=== PATIENT | female | born 1960 | race African-American/Black ===

== ENCOUNTER 2018-05-31 08:31 | Inpatient (IN) | payer MEDICARE ==
[2018-05-31] MEDS ORDERED: Nitroglycerin 50 MG/250 ML BOT 250 ML ONE (08:36)
[2018-05-31] MEDS ORDERED: Fentanyl 100 MCG/2 ML VIAL ONE ×2 (08:37→09:48)
[2018-05-31 08:50] LABS: Actual Bicarbonate (HCO3a) 13.8 mEq/L (22-28); Analyzer IN Cardio ER; CO2 Tension 53.2 mmHg (35.0-45.0); Calcium, Ionized 1.18 mmol/L (1.12-1.30); Carboxyhemoglobin (COHb) 3.4 gm% (0.0-3.0); Hemoglobin (Hb) 13.8 g/dL (12.0-16.0); O2 Tension (PaO2) 90.7 mmHg (80.0-100.0); Potassium - ABG Lab 4.81 mmol/L (3.70-5.30)
[2018-05-31 08:51] LABS: Puncture Site LBA; pH, Arterial 7.03 (7.35-7.45)
--- NOTE | 2018-05-31 09:20 | RAD ---
SINGLE VIEW OF THE CHEST: Comparison: None. History: Intubation for respiratory failure. FINDINGS: Single view of the chest shows a normal sized cardiomediastinal silhouette. There is a pacemaker with its lead in the right ventricle. An endotracheal tube is seen with its tip in position above the car gail. An NG tube courses off the inferior aspect of the film. There are increased interstitial marking s, more prominent in the lung apices. IMPRESSION: Increased interstitial lung markings may represent interstitial edema or an atypical infection. POS: [facility]
[2018-05-31] MEDS ORDERED: Fentanyl 20 mcg/ml (100 ml CADD) IV PRN (09:26)
[2018-05-31 09:27] LABS: INR-International Normal Ratio 1.2; Prothrombin Time 15.3 SEC (12.0-14.7)
[2018-05-31 09:33] LABS: Hemoglobin 13.4 g/dL (12.0-16.0); Mean Corpuscular HGB CONC 30.8 g/dL (32.0-36.0); Mean Corpuscular Hemoglobin 24.6 pg (27.0-31.0); Mean Corpuscular Volume 79.8 fL (78.0-98.0); Mean Platelet Volume 10.8 fL (7.4-10.4); Platelet Count 183 thou/uL (130-400); Red Blood Cell (RBC) Count 5.45 mill/uL (4.20-5.40); White Blood Cell (WBC) Count 15.6 thou/uL (4.8-10.8)
[2018-05-31 09:39] LABS: ALT (SGPT) 97 U/L (8-55); AST (SGOT) 108 U/L (5-34); Albumin 3.4 g/dL (3.5-5.0); Alkaline Phosphatase 118 U/L (40-150); Anion Gap 23 mmol/L (10-20); BUN (Urea Nitrogen) 16 mg/dL (9.8-20.1); Bilirubin, Total 0.4 mg/dL (0.2-1.2); Calc. Creatinine Clearance 0 mL/min (70-130); Calcium 8.5 mg/dL (7.8-10.44); Carbon Dioxide 13 mmol/L (22-29); Chloride 107 mmol/L (98-107); Estimated GFR-MDRD 45; Globulin 3.2 g/dL (2.4-3.5); Glucose 361 mg/dL (70-105); Potassium 4.7 mmol/L (3.5-5.1); Protein, Total 6.6 g/dL (6.0-8.3); Sodium 138 mmol/L (136-145)
--- NOTE | 2018-05-31 09:39 | CT ---
CTA THORAX UTILIZING IV CONTRAST AND 3D REFORMATTED IMAGING: Date: 05/31/18 INDICATION: History of respiratory and cardiac arrest. COMPARISON: None. FINDINGS: No central or segmental pulmonary embolus is evident. There are perihilar air space opacities with sm all bilateral pleural effusions. No pneumothorax demonstrated. The patient is intubated with gastric catheter placement. Gastric catheter is seen within the fundus. There is some reflux of contrast with in the hepatic veins which can be seen as right heart dysfunction. There are nondisplaced left 1st-4t h rib fractures. There is a nondisplaced anterior right 1st and 2nd rib fracture. There is an AICD ov erlying the left chest wall. IMPRESSION: 1. No central or segmental pulmonary embolus. 2. Bilateral perihilar air space opacities may reflect pulmonary edema, pulmonary hemorrhage, or mul tifocal pneumonia. 3. Reflux of contrast within the hepatic veins which can be seen with right heart dysfunction. There are bilateral pleural effusions. 4. Anterior bilateral rib fractures can be seen with patients following CPR. 5. Intubation with gastric catheter placement. 6. Single lead AICD. POS: [facility]
[2018-05-31 09:58] LABS: Band 10 % (5-11); Eosinophils 6 % (0-10); Hypochromia SLIGHT = 6-15 cells (100X) (0-5/hpf); Lymphocytes 47 % (21-51); MDiff Complete? YES; Microcytosis SLIGHT = 6-15 cells (100X) (0-5/hpf); Monocytes 8 % (0-10); Neutrophil 26 % (42-75); Polychromasia SLIGHT = 2-3 cells (100X) (0-2/hpf); Reactive Lymphocytes 3 % (0-10)
[2018-05-31] MEDS ORDERED: Piperacillin/Tazobactam 4.5 GM VIAL ONE (10:26)
[2018-05-31] MEDS ORDERED: Vancomycin HCl 1.5 GM in Sodium Chloride 0.9% 250 ML 300 ML IVPB SCH (10:45)
[2018-05-31 10:46] LABS: Bilirubin Negative (Negative); Blood, Urine Moderate (Negative); Clarity TURBID (Clear); Glucose, Urine (Dipstick) 250 mg/dL (Negative); Leukocyte Negative (Negative); Nitrite Negative (Negative); Protein, Urine (Dipstick) 300 mg/dL (Neg-Trace); Specific Gravity, Urine 1.037 (1.002-1.036); pH, Urine 5.5 (5.0-9.0)
[2018-05-31 10:49] LABS: Bacteria/HPF 1+ HPF (None Seen)
[2018-05-31 10:52] LABS: Pathc Cast-AUWi Flag 9.98 (0-2.49)
[2018-05-31 10:53] LABS: Hyaline Casts/LPF NONE SEEN LPF (0-3 Hyaline)
[2018-05-31] MEDS ORDERED: Iopamidol 370 76% 50 ML VIAL FS ONE (11:57)
[2018-05-31 12:14] VITALS: BMI 37.2
[2018-05-31 12:23] LABS: CKMB 5.5 ng/mL (0-6.6)
[2018-05-31] MEDS ORDERED: Lorazepam 2 MG/ML VIAL SLOW IVP PRN ×2 (12:26→15:11)
[2018-05-31] MEDS ORDERED: Morphine 2 MG/ML SYRINGE SLOW IVP PRN ×2 (12:26→15:11)
[2018-05-31] MEDS ORDERED: Fentanyl BOLUS 250 ML IVPB PRN ×2 (12:26→15:11)
[2018-05-31] MEDS ORDERED: Propofol BOLUS 1,000 MG/100 ML VIAL IV PRN ×2 (12:26→15:11)
[2018-05-31] MEDS ORDERED: fentaNYL Citrate/PF 2,000 MCG in Sodium Chloride 0.9% 60 ML IV SCH ×2 (12:26→15:11)
[2018-05-31] MEDS ORDERED: Propofol 1,000 MG/100 ML VIAL IV PRN (12:26)
[2018-05-31] MEDS ORDERED: Vecuronium 10 MG VIAL IV PRN (12:30)
[2018-05-31] MEDS ORDERED: Acetaminophen 1,000 MG in Premix Bag 1 BAG IVPB PRN (12:30)
[2018-05-31] MEDS ORDERED: DO NOT USE PRE-EXISTING LYTE PROTOCOL FS SCH (12:30)
[2018-05-31 13:04] LABS: Actual Bicarbonate (HCO3a) 15.7 mEq/L (22-28); Base Excess (BEa) -6.9 mEq/L (-2.0 to +3.0); Calcium, Ionized 1.12 mmol/L (1.12-1.30); Carboxyhemoglobin (COHb) 2.6 gm% (0.0-3.0); Hemoglobin (Hb) 13.1 g/dL (12.0-16.0); O2 Tension (PaO2) 71.5 mmHg (80.0-100.0); Potassium - ABG Lab 4.73 mmol/L (3.70-5.30); pH, Arterial 7.42 (7.35-7.45)
[2018-05-31 13:06] LABS: CO2 Tension 24.7 mmHg (35.0-45.0)
[2018-05-31 13:07] LABS: ALV-art Gradient 289.775 (0-20); Puncture Site RRA
[2018-05-31] MEDS: Cefepime 1 GM in Sodium Chloride 0.9% 100 ML IVPB SCH (13:30)
[2018-05-31] MEDS ORDERED: Ondansetron PF 4 MG/2 ML Vial IVP PRN (13:54)
[2018-05-31] MEDS ORDERED: Ondansetron ODT 4 MG TAB PO PRN (13:54)
[2018-05-31] MEDS ORDERED: Acetaminophen 650 MG Suppository PR PRN (13:54)
[2018-05-31] MEDS ORDERED: Dextrose 50% Abboject 50 ML SYRINGE SLOW IVP PRN (13:54)
[2018-05-31] MEDS ORDERED: Dextrose 5% in Water 1,000 ML IV PRN (13:54)
[2018-05-31] MEDS: HumaLOG 300 UNITS/3 ML VIAL SC PRN ×2 (14:07→15:50)
[2018-05-31] MEDS: Sodium Chloride 0.9% 1,000 ML IV SCH (14:10)
[2018-05-31] MEDS ORDERED: hydrALAZINE 20 MG/ML VIAL ONE (14:12)
[2018-05-31] MEDS ORDERED: Propofol 1,000 MG/100 ML VIAL IV ONE (14:58)
[2018-05-31] MEDS ORDERED: DISCONTINUE PREVIOUS NARCOTIC PAIN MEDICATIONS AND BENZODIAZEPINES FS SCH (15:11)
[2018-05-31] MEDS: levETIRAcetam In NaCl (Iso-Os) 1,000 MG in Premix Bag 1 BAG IVPB SCH (15:16)
--- NOTE | 2018-05-31 17:00 | HP ---
PRIMARY CARE PHYSICIAN: Unknown. The patient is unable to give any information. CHIEF COMPLAINT: [id number] cardiac arrest. HISTORY OF PRESENT ILLNESS: Ms. Obrien is a 57-year-old female, who presented via EMS with respiratory arrest followed by cardiac arrest. She underwent CPR x2 rounds in the prehospital services and with return of spontaneous circulation. Initially, her saturations were 50%, but she was unable to speak and was able to improve with just oxygen. En route to the emergency department, she was intubated with a 7.5 endotracheal tube. Blood pressure today in the 190s and has a pink frothy secretions. She was biting on the tube and was given fentanyl for sedation, but otherwise has been unresponsive. She is unable to give further history. Currently, she had been moved to the ICU. She still intubated on the ventilator. She has been taken off fentanyl just now and is unable to give any further history or follow any commands. PAST MEDICAL HISTORY: 1. Hypertension. 2. Depression. 3. Hyperlipidemia. PAST SURGICAL HISTORY: Unknown. HOME MEDICATIONS: 1. Zocor 40 mg p.o. at bedtime. 2. Clonidine 0.1 mg p.o. daily. 3. Bupropion 300 mg p.o. q.a.m. ALLERGIES: NKDA. FAMILY HISTORY: Unknown. SOCIAL HISTORY: Unknown, but per her family member at the bedside, negative for history of IV drug abuse, tobacco, or significant alcohol uses. REVIEW OF SYSTEMS: Not obtainable due to intubated status. PHYSICAL EXAMINATION: VITAL SIGNS: Temperature on arrival to the unit 97.9, pulse 83, blood pressure 151/91, respiratory rate 18, and saturations 94% on mechanical vent. GENERAL: She is sedated and orally intubated. She is in no distress. HEENT: Normocephalic and atraumatic. Pupils are 2 to 3 mm, minimally reactive. She has Doll eyes. A 7.5 oral endotracheal tube is present . NECK: Supple. There is no lymphadenopathy, JVD, or thyromegaly. Normal carotid upstroke. There are no bruits. LUNGS: Clear. No wheezes, rales, or rhonchi. CARDIOVASCULAR: Normal S1 and S2. No S3 or S4. No audible murmurs. ABDOMEN: Soft, nontender, nondistended. Good bowel sounds in all 4 quadrants. EXTREMITIES: No clubbing with trace pedal edema. SKIN: Warm, moist, and well perfused without rash or lesions. MUSCULOSKELETAL: Normal to inspection without evidence of inflammation or palpable effusions. NEUROLOGIC: Not testable. LABORATORY DATA: White blood cell count 15.6, hemoglobin 13.4, hematocrit of 43.5, and platelet count 183,000. She has normal differential. Coags showed INR 1.2. ABG initially 7.03 with a pCO2 of 53.2, and PO2 of 90.7. Chemistry showed creatinine 1.22. She has an unknown baseline. Glucose of 361. Bicarbonate is low at 13 with a lactic acid of 12.3. AST and ALT were mildly elevated at 108 and 97. Initial troponin was 0.016, repeat is 0.161. BNP of 198.9. Urinalysis shows 11 to 20 squamous epithelial cells specimen. ASSESSMENT AND PLAN: 1. [id number] cardiopulmonary arrest with return of spontaneous circulation. She is intubated in the ICU. Pulmonary Critical Care has been consulted. We will trend other cardiac biomarkers. We will continue to support her respiratorily and allow her to wake up. 2. Diabetes mellitus type 2. Blood sugars of 300. Sliding scale insulin has been ordered. 3. Hypertension. Antihypertensives have been ordered p.r.n. with hydralazine. 4. Hyperlipidemia. 5. Depression. The patient is a full code. Job ID: [id number]
--- NOTE | 2018-05-31 19:36 | CON ---
DATE OF CONSULTATION: HISTORY OF PRESENT ILLNESS: A 57-year-old morbidly obese, female, who was found down at home. She has a granddaughter at the bedside, who states she called the house. She is staying with a friend and a and apparently, they found her down unresponsive. Paramedics were called in. She had cardiopulmonary arrest. Apparently, a PEA, and she has a known ejection fraction of less than 30%. It is unclear whether seen any physician recently. CPR was initiated and apparently, they were able to get a pulse and rhythm. She is intubated in the vent and now in the ICU. The granddaughter is here at the bedside. I will review some of old medical records. She was seeing at one time a doctor, Dr. Iglesias from [place]. It is unclear when the last time, he saw the patient. She was given 2 amps of epinephrine. Cardiac rhythm was initiated. There was a PEA for a period of time. 7.5 endotracheal tube was used to intubate the patient. Frothy secretions were noted. She has a pacemaker in the chest. PAST MEDICAL HISTORY: Reviewing the old medical records shows she has a cardiomyopathy, pacemaker, hypertension, depression. MEDICATIONS: Medicine from home: 1. Simvastatin 40. 2. Catapres 0.1. 3. Bupropion 300. ALLERGIES: AT THIS STAGE, UNKNOWN. PREVIOUS SURGERIES: Otherwise, unknown except for the pacemaker. Previous cardiac catheterization that I was able to see. REVIEW OF SYSTEMS: Otherwise, unobtainable. PHYSICAL EXAMINATION: GENERAL: She is on 100 of fentanyl. VITAL SIGNS: Pulse 83, blood pressure 144/101, saturations 90%, respirations 18. CHEST: Bilateral rhonchi and crackles. CARDIAC: Normal S1 and S2. No gallops. ABDOMEN: Soft. NEUROLOGIC: Unresponsive. Pupils are 2 mm. She has some facial twitches. LABORATORY DATA: PO2 was 90, pCO2 of 56, pH 7.03 on a rate of 14. Glucose is 27. Urine was normal. White count 15,000, H and H of 13 and 43, platelet count is normal. Creatinine 1.2. IMAGING STUDIES: CT chest shows pulmonary edema. No evidence of PE. IMPRESSION: 1. Cardiopulmonary arrest, status post congestive heart failure. 2. Pacemaker. 3. Diabetes. 4. Azotemia. 5. Obesity. 6. Probably anoxic injury. PLAN: 1. Continue supportive care and PT. 2. Reassess neurological status in the next 24 to 48 hours. Await input from Cardiology. Prognosis is grave. This is a 45 minute critical time. Job ID: [id number]
[2018-05-31] MEDS: Famotidine/PF 20 mg/2ml Vial SLOW IVP SCH (20:41)
[2018-05-31] MEDS: Propofol 1,000 MG/100 ML VIAL IV PRN (20:46)
--- NOTE | 2018-05-31 22:39 | CON ---
DATE OF CONSULTATION: 05/31/2018 HISTORY OF PRESENT ILLNESS: Selena Obrien is a 57-year-old black female, who has been evaluated by Dr. Null in the past. She was hospitalized in May 2012 with increased shortness of breath. She underwent cardiac catheterization and had normal coronary arteries, however, ejection fraction was 25% to 30%. She was having episodes of nonsustained ventricular tachycardia. In September 2012, she was again seen in the office and ejection fraction continued to be at 20% to 25%. She was then referred to electrophysiology and in December 2012, she underwent placement of a single-chamber [employer] defibrillator by Dr. Conway (this information was not readily available since the patient has 2 hospital numbers). She has not followed up with Dr. Null since that time. She was last hospitalized in 2014 for chest pain with negative cardiac enzymes. She underwent Cardiolite testing, which was negative for ischemia. Of note, in September 2014, she was on carvedilol 25 mg b.i.d., lisinopril-hydrochlorothiazide 20-12.5 mg b.i.d. However, her current list of medications does not include either of those. Current history is obtained from the hospital chart because the patient is intubated and sedated. She apparently had a respiratory arrest followed by cardiac arrest, underwent CPR x2 prior to arriving in the hospital, was intubated. She has been sedated with fentanyl and is unable to give any history. PAST MEDICAL HISTORY: Hypertension, depression, hyperlipidemia. OPERATIONS: ICD placement. HOME MEDICATIONS: Include: 1. Simvastatin 40 at bedtime. 2. Clonidine 0.1 at bedtime. 3. Wellbutrin 300 mg q.a.m. ALLERGIES: NONE. SOCIAL HISTORY: She does not smoke or drink. REVIEW OF SYSTEMS: Unobtainable. PHYSICAL EXAMINATION: VITAL SIGNS: Blood pressure 160/79, pulse 77. HEENT: PERRL. NECK: Supple. CHEST: Reveals occasional crackles. CARDIOVASCULAR: S1 and S2 normal without any S3, S4, or murmurs. ABDOMEN: Normal bowel sounds. EXTREMITIES: Reveal 1+ pretibial edema. NEUROLOGICAL: The patient is sedated. LABORATORY DATA: Chest x-ray reveals single-chamber ICD and pulmonary edema. EKG, not on the chart. White count 15,600; platelets 183,000; hemoglobin 13.4; hematocrit 43.5. INR 1.2. PH initially was 7.03, pCO2 of 53.2, PO2 of 90.7. Sodium 138, potassium 4.7, chloride 107, carbon dioxide 13, BUN 16, creatinine 1.22, lactic acid 12.3, troponin I 0.161, AST 108, and ALT 97. IMPRESSION: 1. Cardiopulmonary arrest. The exact sequence of events is somewhat unclear, although she did go twice to the emergency room. 2. History of nonischemic cardiomyopathy. 3. Status post single-chamber ICD placement. 4. Noncompliance with followups and with Coreg and VIJAY. 5. Hypertension. 6. Hyperlipidemia. 7. Depression. 8. History of diabetes. PLAN: ICD will be interrogated to see if this episode was initiated by a cardiac arrhythmia. Echocardiogram will be performed to reassess left ventricular function. Her prognosis is guarded at this time. Job ID: [id number] MTDD
[2018-06-01] MEDS: Cefepime 1 GM in Sodium Chloride 0.9% 100 ML IVPB SCH ×2 (01:00→12:29)
[2018-06-01] MEDS: levETIRAcetam In NaCl (Iso-Os) 1,000 MG in Premix Bag 1 BAG IVPB SCH ×2 (02:34→14:14)
[2018-06-01] MEDS: Propofol 1,000 MG/100 ML VIAL IV PRN ×2 (03:18→06:32)
[2018-06-01 04:50] LABS: #Lymphocytes 2.9 thou/uL (1.20-3.40); #Monocytes 1.2 thou/uL (0.11-0.59); #Neutrophils 7.2 thou/uL (1.40-6.50); %Basophils 0.2 % (0.0-1.0); %Eosinophils 0.3 % (0.0-10.0); %Lymphocytes 25.3 % (21.0-51.0); %Monocytes 10.8 % (0.0-10.0); %Neutrophils 63.4 % (42.0-75.0); Hemoglobin 12.3 g/dL (12.0-16.0); Mean Corpuscular HGB CONC 33.2 g/dL (32.0-36.0); Mean Corpuscular Hemoglobin 25.7 pg (27.0-31.0); Mean Corpuscular Volume 77.4 fL (78.0-98.0); Mean Platelet Volume 10.5 fL (7.4-10.4); Platelet Count 139 thou/uL (130-400); RBC Distribution Width 14.2 % (11.5-14.5); White Blood Cell (WBC) Count 11.3 thou/uL (4.8-10.8)
[2018-06-01 05:03] LABS: Anion Gap 14 mmol/L (10-20); BUN (Urea Nitrogen) 18 mg/dL (9.8-20.1); Calc. Creatinine Clearance 92 mL/min (70-130); Calcium 8.1 mg/dL (7.8-10.44); Carbon Dioxide 14 mmol/L (22-29); Chloride 115 mmol/L (98-107); Estimated GFR-MDRD 72; Glucose 97 mg/dL (70-105); Potassium 4.1 mmol/L (3.5-5.1); Sodium 139 mmol/L (136-145)
[2018-06-01 07:27] LABS: Actual Bicarbonate (HCO3a) 18.2 mEq/L (22-28); Base Excess (BEa) -4.7 mEq/L (-2.0 to +3.0); CO2 Tension 26.9 mmHg (35.0-45.0); Calcium, Ionized 1.15 mmol/L (1.12-1.30); Carboxyhemoglobin (COHb) 0.8 gm% (0.0-3.0); Hemoglobin (Hb) 10.5 g/dL (12.0-16.0); O2 Tension (PaO2) 71.2 mmHg (80.0-100.0); Potassium - ABG Lab 3.62 mmol/L (3.70-5.30); pH, Arterial 7.45 (7.35-7.45)
[2018-06-01 07:28] LABS: ALV-art Gradient 251.675 (0-20); Puncture Site RRA
[2018-06-01] MEDS: Furosemide 20 MG/2 ML VIAL SLOW IVP SCH (08:51)
[2018-06-01] MEDS: Carvedilol 6.25 MG TAB PER TUBE SCH ×2 (08:51→16:56)
[2018-06-01] MEDS ORDERED: Lisinopril 2.5 MG TAB PER TUBE SCH (09:00)
[2018-06-01] MEDS: hydrALAZINE 20 MG/ML VIAL SLOW IVP PRN ×2 (09:39→15:23)
--- NOTE | 2018-06-01 09:47 | RAD ---
PORTABLE SEMI UPRIGHT FRONTAL CHEST RADIOGRAPH: Date: 06-01-18 Comparison: 05-31-18 History: Ventilated patient. FINDINGS: Endotracheal tube, nasogastric tube, and left sided AICD present, unchanged when compared to prior im aging. No pneumothorax. There is perihilar interstitial prominence and pulmonary vascular congestion with bibasilar airspace disease, left greater than right, worsened since the prior examination. Blunting of the costophrenic angle suggests small bilateral pleural effusions. IMPRESSION: 1. Worsening aeration in the perihilar regions in both lung bases suggests worsening pulmonary edema. Infectious pneumonitis or aspiration is a possibility. 2. Recommend follow up imaging following treatment to document resolution. POS: [facility]
--- NOTE | 2018-06-01 09:53 | PRG ---
DATE OF SERVICE: SUBJECTIVE: This morning, she is intubated in the vent, sedated on Diprivan and fentanyl. OBJECTIVE: VITAL SIGNS: Blood pressure 160/93, pulse 115, respiratory rate 20, pulse 80. CHEST: Decreased breath sounds. No wheezing. CARDIAC: Normal S1 and S2. No gallops. ABDOMEN: No masses. LABORATORY DATA: White count 11,000 and H and H 12 and 37, platelet count 137. PO2 of 71, pCO2 of 26.44 on a rate of 14, 50%. X-ray shows CHF. Lytes are normal. IMPRESSION: 1. Status post cardiopulmonary arrest. 2. Congestive heart failure. 3. Probably anoxic injury. 4. Obesity. PLAN: We try and hold sedation to assess any neurological status. She is not weanable at this stage. Continue vent support, empiric antibiotics. Seizure medication. One-half hour of critical time. Job ID: [id number]
[2018-06-01] MEDS: HumaLOG 300 UNITS/3 ML VIAL SC PRN ×2 (10:21→16:40)
[2018-06-01] MEDS ORDERED: cloNIDine 0.1mg/24 Hour PATCH TD SCH (12:00)
[2018-06-01] MEDS: Sodium Chloride 0.9% 1,000 ML IV SCH ×4 (12:10→20:59)
--- NOTE | 2018-06-01 12:52 | PDOC.PN ---
- Subjective Encounter Start Date: 06/01/18 Encounter Start Time: 11:45 -: non-verbal follow up for OOH arrest and ROSC. sedation just turned off, not doing anything yet, no family at BS No F/C, no n/V/D/C appreciate pulm assistance. BP still elevated, will add in clonidine TTS-1 - Objective Resuscitation Status - Order Detail: 05/31/18 13:49 Resuscitation Status Routine Resuscitation Status: FULL: Full Resuscitation MAR Reviewed: Yes Vital Signs & Weight: Vital Signs (12 hours) Temp Pulse Resp BP Pulse Ox 06/01/18 12:00 99.3 F 18 06/01/18 10:08 101 H 171/97 H 06/01/18 10:00 18 06/01/18 09:39 188/122 H 06/01/18 08:51 165/94 H 06/01/18 08:50 108 H 165/94 H 06/01/18 08:00 96 06/01/18 07:00 100.0 F H 06/01/18 06:59 113 H 186/111 H 06/01/18 06:00 18 06/01/18 04:00 100.1 F H 18 06/01/18 02:00 18 Weight Weight 203 lb 7.787 oz Most Recent Monitor Data Heart Rate from ECG 104 NIBP 169/85 NIBP BP-Mean 113 Respiration from ECG 19 SpO2 97 I&O: 05/31/18 06/01/18 06/02/18 06:59 06:59 06:59 Intake Total 2126.5 30 Output Total 2265 1955 Balance -138.5 -1925 Result Diagrams: 06/01/18 04:24 06/01/18 04:24 Additional Labs: Accuchecks 06/01/18 06/01/18 05/31/18 10:15 04:36 22:19 POC Glucose 183 H 101 106 05/31/18 15:50 POC Glucose 287 H Radiology Reviewed by me: Yes EKG Reviewed by me: Yes Phys Exam - Physical Examination Constitutional: NAD HEENT: PERRLA, moist MMs, sclera anicteric, oral pharynx no lesions Neck: no nodes, no JVD, supple, full ROM Respiratory: no wheezing, no rhonchi, clear to auscultation bilateral Cardiovascular: RRR, no significant murmur, no rub Gastrointestinal: soft, non-tender, no distention, positive bowel sounds Musculoskeletal: edema present Lymphatic: no nodes Skin: no rash, normal turgor, cap refill <2 seconds Dx/Plan (1) Cardiac arrest Code(s): I46.9 - CARDIAC ARREST, CAUSE UNSPECIFIED Status: Acute (2) HTN (hypertension) Code(s): I10 - ESSENTIAL (PRIMARY) HYPERTENSION Status: Chronic Qualifiers: Hypertension type: essential hypertension Qualified Code(s): I10 - Essential (primary) hypertension (3) Metabolic encephalopathy Code(s): G93.41 - METABOLIC ENCEPHALOPATHY Status: Acute (4) Acute hypoxemic respiratory failure Code(s): J96.01 - ACUTE RESPIRATORY FAILURE WITH HYPOXIA Status: Acute - Plan cont current plan of care, social sciences instructor, respiratory therapy * . Vent per pulm, TTS-1 patch, follow up on pulm recs, follow up on sedation holiday findings
--- NOTE | 2018-06-01 16:14 | EKG ---
Test Reason : Blood Pressure : / mmHG Vent. Rate : 109 BPM Atrial Rate : 109 BPM P-R Int : 156 ms QRS Dur : 084 ms QT Int : 386 ms P-R-T Axes : 041 038 108 degrees QTc Int : 519 ms Sinus tachycardia Nonspecific T wave abnormality Abnormal ECG No previous ECGs available Confirmed by DR. Wilfredo MAYS ([id number]) on 06/01/2018 4:13:54 PM Referred By: KAMILLA Confirmed By:DR. Wilfredo MAYS
[2018-06-01] MEDS: Famotidine/PF 20 mg/2ml Vial SLOW IVP SCH (20:59)
[2018-06-01] MEDS: Labetalol HCl 100 MG/20 ML VIAL SLOW IVP PRN (20:59)
--- NOTE | 2018-06-02 00:21 | CON ---
DATE OF CONSULTATION: 06/01/2018 CONSULTING PHYSICIAN: Pulmonary Service. IMPRESSION: Anoxic encephalopathy with burst suppression pattern suggesting a poor prognosis. She is currently 24 hours out from her arrest. PLAN: Continue supportive measures for the next 48 hours. HISTORY OF PRESENT ILLNESS: Ms. Obrien is a 57-year-old black female with a past history of cardiomyopathy, diabetes, hypertension, hyperlipidemia, and noncompliance. She apparently had an [id number] cardiac arrest and was resuscitated and brought in. She has failed to regain consciousness. She has been off sedation all day today. I have called to give neurologic opinion. PAST MEDICAL HISTORY: As listed above. ALLERGIES: NONE REPORTED. SOCIAL HISTORY: Unknown. FAMILY HISTORY: Unknown. REVIEW OF SYSTEMS: Not obtainable. PHYSICAL EXAMINATION: VITAL SIGNS: Blood pressure 180/90, pulse 118, respirations 18 on ventilatory support with saturation 99%. HEENT: Pupils are equal and weakly reactive. She has a good corneal response. She has spontaneous eye opening to painful stimulation. Once partially awaken, she developed some myoclonic twitching around the jaw. She has peripheral pain responses noted. LABORATORY STUDIES: EEG shows near burst suppression pattern with low amplitude theta activity seen between bursts, which are generalized in distribution. Unremarkable CBC and serum chemistries. Echocardiogram showed ejection fraction of 20% to 25%. SUMMARY: Unfortunate middle-aged woman with cardiac arrest and appears to have significant degree of anoxic brain damage. Discussed this with two of the family members, but there is no known living will or advanced directive in her care. Continue to monitor her clinical course and make further recommendations. Job ID: [id number]
[2018-06-02] MEDS: Cefepime 1 GM in Sodium Chloride 0.9% 100 ML IVPB SCH ×2 (00:47→12:03)
[2018-06-02] MEDS: Labetalol HCl 100 MG/20 ML VIAL SLOW IVP PRN ×3 (01:32→15:21)
[2018-06-02] MEDS: levETIRAcetam In NaCl (Iso-Os) 1,000 MG in Premix Bag 1 BAG IVPB SCH ×2 (03:26→15:20)
[2018-06-02] MEDS: hydrALAZINE 20 MG/ML VIAL SLOW IVP PRN ×2 (03:32→12:03)
[2018-06-02 05:42] LABS: Anion Gap 13 mmol/L (10-20); BUN (Urea Nitrogen) 17 mg/dL (9.8-20.1); Calc. Creatinine Clearance 103 mL/min (70-130); Calcium 8.6 mg/dL (7.8-10.44); Carbon Dioxide 18 mmol/L (22-29); Cardiac Risk 4.1 (Less than 4.5); Chloride 115 mmol/L (98-107); Cholesterol 175 mg/dl (< 200 Desired); Estimated GFR-MDRD 82; Glucose 143 mg/dL (70-105); HDL Cholesterol 43 mg/dL (>60 Neg Risk); LDL Cholesterol, Calculated 112 mg/dL; Potassium 3.5 mmol/L (3.5-5.1); Sodium 142 mmol/L (136-145); Triglycerides 102 mg/dL (Less than 150)
[2018-06-02] MEDS: Sodium Chloride 0.9% 1,000 ML IV SCH ×3 (06:01→20:29)
[2018-06-02 07:05] LABS: #Monocytes 1.3 thou/uL (0.11-0.59); #Neutrophils 8.4 thou/uL (1.40-6.50); %Basophils 0.2 % (0.0-1.0); %Eosinophils 0.1 % (0.0-10.0); %Lymphocytes 16.9 % (21.0-51.0); %Monocytes 10.8 % (0.0-10.0); %Neutrophils 71.9 % (42.0-75.0); Hemoglobin 11.6 g/dL (12.0-16.0); Mean Corpuscular HGB CONC 32.4 g/dL (32.0-36.0); Mean Corpuscular Hemoglobin 24.8 pg (27.0-31.0); Mean Corpuscular Volume 76.4 fL (78.0-98.0); Mean Platelet Volume 10.5 fL (7.4-10.4); Platelet Count 127 thou/uL (130-400); Red Blood Cell (RBC) Count 4.68 mill/uL (4.20-5.40); White Blood Cell (WBC) Count 11.7 thou/uL (4.8-10.8)
[2018-06-02 07:57] LABS: Actual Bicarbonate (HCO3a) 17.4 mEq/L (22-28); Base Excess (BEa) -6.2 mEq/L (-2.0 to +3.0); CO2 Tension 28.9 mmHg (35.0-45.0); Calcium, Ionized 1.19 mmol/L (1.12-1.30); Carboxyhemoglobin (COHb) 1.4 gm% (0.0-3.0); Hemoglobin (Hb) 11.8 g/dL (12.0-16.0); Potassium - ABG Lab 3.42 mmol/L (3.70-5.30)
[2018-06-02 07:58] LABS: ALV-art Gradient 189.175 (0-20); O2 Tension (PaO2) 59.9 mmHg (80.0-100.0); Puncture Site RRA
--- NOTE | 2018-06-02 08:32 | RAD ---
SINGLE VIEW OF THE CHEST: Comparison: 06-01-18 History: Ventilated patient with respiratory failure. FINDINGS: Single view of the chest shows an enlarged but stable cardiomediastinal silhouette. The lines and tub es are unchanged in position. The pacemaker is unchanged in position. There may be a small left pleur al effusion. IMPRESSION: Stable exam. POS: [facility]
[2018-06-02] MEDS: Lisinopril 5 MG TAB PER TUBE SCH ×2 (08:47→20:20)
[2018-06-02] MEDS: Famotidine 20 MG TAB PER TUBE SCH ×2 (08:47→20:20)
[2018-06-02] MEDS: Carvedilol 6.25 MG TAB PER TUBE SCH ×2 (08:47→17:18)
[2018-06-02] MEDS: Furosemide 20 MG/2 ML VIAL SLOW IVP SCH (08:48)
--- NOTE | 2018-06-02 09:49 | PRG ---
DATE OF SERVICE: 06/02/2018 SUBJECTIVE: Selena Obrien remains intubated in the vent, unresponsive. She is overriding the vent. OBJECTIVE: VITAL SIGNS: Pulse 115, blood pressure 177/85, saturations are 97%, respirations 22. CHEST: Decreased breath sounds. No wheezing. CARDIAC: Normal S1 and S2. No gallops. ABDOMEN: No masses. LABORATORY DATA: X-ray shows cardiomegaly, left pleural effusion. White count 11,000, hemoglobin and hematocrit of 11 and 35, platelet count is 127. PO2 is 59, pCO2 of 28 lytes are normal. IMPRESSION: 1. Multiorgan failure. 2. Anoxic injury. 3. Congestive heart failure. 4. Cardiomyopathy. PLAN: We will discuss with the patient's next of kin regarding ongoing issues. Palliative Care for family discussion and conference. In the meantime, control blood pressure. Supportive care. One half hour critical time. Job ID: [id number]
--- NOTE | 2018-06-02 11:52 | PDOC.PN ---
- Subjective Encounter Start Date: 06/02/18 Encounter Start Time: 11:49 Javier was seen today in follow-up of respiratory failure. She is intubated, and non-responsive. He brothers and other family are at the bedside. - Objective Resuscitation Status - Order Detail: 05/31/18 13:49 Resuscitation Status Routine Resuscitation Status: FULL: Full Resuscitation MAR Reviewed: Yes Vital Signs & Weight: Vital Signs (12 hours) Temp Pulse Resp BP 06/02/18 11:00 99.5 F 06/02/18 08:47 111 H 174/88 H 06/02/18 07:23 111 H 174/82 H 06/02/18 07:00 99.5 F 06/02/18 06:03 118 H 184/93 H 06/02/18 06:00 20 06/02/18 04:00 99.9 F H 24 H 06/02/18 03:32 106 H 193/102 H 06/02/18 02:00 16 06/02/18 01:32 105 H 185/95 H 06/02/18 00:00 100.4 F H 17 Weight Admit Weight 203 lb Weight 203 lb 7.787 oz Most Recent Monitor Data Heart Rate from ECG 109 NIBP 173/85 NIBP BP-Mean 114 Respiration from ECG 22 SpO2 96 I&O: 06/01/18 06/02/18 06/03/18 06:59 06:59 06:59 Intake Total 2126.5 3120 Output Total 2265 3155 850 Balance -138.5 -35 -850 Result Diagrams: 06/02/18 04:47 06/02/18 04:47 Additional Labs: Accuchecks 06/02/18 06/02/18 06/01/18 11:31 03:51 22:16 POC Glucose 183 H 133 H 127 H 06/01/18 16:39 POC Glucose 187 H Phys Exam - Physical Examination HEENT: PERRLA Respiratory: no wheezing, no rales, no rhonchi, clear to auscultation bilateral Cardiovascular: RRR, no significant murmur, no rub Gastrointestinal: soft, non-tender, no distention, positive bowel sounds Musculoskeletal: no edema Dx/Plan (1) Acute hypoxemic respiratory failure Code(s): J96.01 - ACUTE RESPIRATORY FAILURE WITH HYPOXIA Status: Acute (2) Chronic systolic heart failure Code(s): I50.22 - CHRONIC SYSTOLIC (CONGESTIVE) HEART FAILURE Status: Acute (3) Multifocal pneumonia Code(s): J18.9 - PNEUMONIA, UNSPECIFIED ORGANISM Status: Acute (4) Cardiac arrest Code(s): I46.9 - CARDIAC ARREST, CAUSE UNSPECIFIED Status: Acute (5) HTN (hypertension) Code(s): I10 - ESSENTIAL (PRIMARY) HYPERTENSION Status: Chronic Qualifiers: Hypertension type: essential hypertension Qualified Code(s): I10 - Essential (primary) hypertension - Plan * Ms. Herrera is an unfortunate woman who was found down at home. She was admitted post Cardiac arrest, and found to have a multi-focal oneumonia, and severe cardiomyopathy with an low EF. She has not made any significant improved. She has been found to have severe anoxic brain injury, and the family is planning terminal extubation..
[2018-06-02] MEDS: HumaLOG 300 UNITS/3 ML VIAL SC PRN (12:03)
--- NOTE | 2018-06-02 16:24 | PQF ---
CLINICAL DOCUMENTATION IMPROVEMENT CLARIFICATION FORM: ICD-10 Updated PLEASE DO AN ADDENDUM TO THE PROGRESS NOTE WITH ANY DOCUMENTATION UPDATES OR ADDITIONS AND CARRY THROUGH TO DC SUMMARY. THANK YOU. DATE: 06/02/2018 ;06/03/2018; 06/04/2018 ATTN: Dr. Peck/ Dr. Catalan/ Dr. Rousseau Please exercise your independent, professional judgment in responding to the clarification form. Clinical indicators are provided on the bottom of this form for your review Please check appropriate box(es): [ ] Sepsis due to: [ ] Severe sepsis with acute organ dysfunction of: [ ] Septic Shock [ ] Localized infection without sepsis [ x ] Other diagnosis ___cardiogenic shock [ ] Unable to determine In addition, please specify: Present on Admission (POA): [ x ] Yes [ ] No [ ] Unable to determine For continuity of documentation, please document condition throughout progress notes and discharge summary. Thank You. CLINICAL INDICATORS - SIGNS / SYMPTOMS / LABS ER RECORD 05/31: EMS arrived on scene the pt had an O2 Sat of 50%, but pt was still able to speak with EMS. EMS reports pt went into resp. arrest and had CPR immediately started. Pt was intubated en route. Pulse 121, Resp 20 Bilateral patchy opacities which may be pneumonia. Meets septic shock criteria. Lactic over 12, WBC elevated, pneumonia. DX: Respiratory arrest Cardiac arrest, pneumonia, Sepsis PN 06/02: Admitted post Cardiac arrest, and found to have a multifocal pneumonia, and severe cardiomyopathy with a low EF. RISKS: H&P 05/31: Out of hospital cardiopulmonary arrest with return of spontaneous circulation. DM 2. HTN PN 06/02: Acute hypoxemic respiratory failure. Chronic systolic heart failure. Acute. Multifocal pneumonia. TREATMENT: Order 05/31: Maxipime 1gm IV Order 05/31-06/02: NS IV 100 mls/hr Order 06/02: NS IV 75 mls/hr Thank you, Luanne (This form is maintained as a part of the permanent medical record) 2014 [employer] All Rights [place] Luanne Baker RN, BSN [email or web address] Office: [phone] [facility]
[2018-06-02] MEDS: cloNIDine 0.1 MG TAB PO SCH (20:20)
[2018-06-03] MEDS ORDERED: Clopidogrel Bisulfate 75 MG TAB ONE (02:10)
[2018-06-03] MEDS: levETIRAcetam In NaCl (Iso-Os) 1,000 MG in Premix Bag 1 BAG IVPB SCH ×2 (02:20→15:49)
[2018-06-03] MEDS: Cefepime 1 GM in Sodium Chloride 0.9% 100 ML IVPB SCH ×2 (02:30→12:44)
[2018-06-03 06:23] LABS: Anion Gap 13 mmol/L (10-20); BUN (Urea Nitrogen) 21 mg/dL (9.8-20.1); Calc. Creatinine Clearance 116 mL/min (70-130); Calcium 8.5 mg/dL (7.8-10.44); Carbon Dioxide 18 mmol/L (22-29); Chloride 118 mmol/L (98-107); Estimated GFR-MDRD Greater than 90; Glucose 166 mg/dL (70-105); Potassium 3.8 mmol/L (3.5-5.1); Sodium 145 mmol/L (136-145)
[2018-06-03 06:49] LABS: #Basophils 0.1 thou/uL (0.0-0.2); #Lymphocytes 1.9 thou/uL (1.20-3.40); #Monocytes 1.1 thou/uL (0.11-0.59); #Neutrophils 6.1 thou/uL (1.40-6.50); %Basophils 0.6 % (0.0-1.0); %Eosinophils 0.3 % (0.0-10.0); %Lymphocytes 20.9 % (21.0-51.0); %Monocytes 11.6 % (0.0-10.0); %Neutrophils 66.6 % (42.0-75.0); Hemoglobin 10.9 g/dL (12.0-16.0); Mean Corpuscular HGB CONC 31.8 g/dL (32.0-36.0); Mean Corpuscular Volume 78.5 fL (78.0-98.0); Mean Platelet Volume 10.3 fL (7.4-10.4); Platelet Count 110 thou/uL (130-400); Platelet Morphology Comment Appears Decreased; RBC Distribution Width 14.2 % (11.5-14.5); Red Blood Cell (RBC) Count 4.38 mill/uL (4.20-5.40); White Blood Cell (WBC) Count 9.2 thou/uL (4.8-10.8)
[2018-06-03] MEDS: Labetalol HCl 100 MG/20 ML VIAL SLOW IVP PRN ×2 (06:52→15:46)
--- NOTE | 2018-06-03 09:05 | RAD ---
PORTABLE CHEST: History: CCU follow up. On ventilator. Comparison: 06-02-18 FINDINGS: ET tube and NG tube remain in place. AICD leads again noted. Left basilar opacification obscuring the left hemidiaphragm suggesting atelectasis or infiltrate. Rig ht lung appears clear and unchanged. Vascular markings mildly prominent and stable. IMPRESSION: No acute change. POS: [facility]
[2018-06-03] MEDS: Carvedilol 6.25 MG TAB PER TUBE SCH ×4 (09:14→21:24)
[2018-06-03] MEDS: Lisinopril 5 MG TAB PER TUBE SCH ×2 (09:15→21:25)
[2018-06-03] MEDS: Famotidine 20 MG TAB PER TUBE SCH ×2 (09:15→21:25)
[2018-06-03] MEDS: Furosemide 20 MG/2 ML VIAL SLOW IVP SCH (09:15)
[2018-06-03] MEDS: cloNIDine 0.1 MG TAB PO SCH ×2 (09:15→21:24)
[2018-06-03] MEDS: hydrALAZINE 20 MG/ML VIAL SLOW IVP PRN (09:43)
--- NOTE | 2018-06-03 10:01 | PRG ---
DATE OF SERVICE: 06/03/2018 SUBJECTIVE: This morning, remains unresponsive, has been off sedation for 48 to 72 hours. OBJECTIVE: VITAL SIGNS: Blood pressure is 170/80, pulse is 96, respirations 16, and sats 96%. CHEST: Decreased breath sounds. No wheezing. CARDIAC: Normal S1 and S2. No gallops. ABDOMEN: Soft. HEENT: Pupils are dilated about 4 mm, now they are reacting. LABORATORY DATA: Lytes are normal. White count 9000. Chest x-ray shows cardiomegaly and pacemaker in place. IMPRESSION: 1. Congestive cardiomyopathy, severe. 2. Anoxic injury. 3. Status post pulseless electrical activity, cardiopulmonary arrest. PLAN: Family has to make a decision regarding ongoing care. Her prognosis is grave. Care was consulted. Further input to talk with the family. One-half hour critical time. Job ID: [id number]
[2018-06-03] MEDS: HumaLOG 300 UNITS/3 ML VIAL SC PRN ×2 (11:21→17:23)
[2018-06-03] MEDS: Sodium Chloride 0.9% 1,000 ML IV SCH ×2 (12:45→17:22)
[2018-06-04] MEDS: Cefepime 1 GM in Sodium Chloride 0.9% 100 ML IVPB SCH ×2 (00:49→13:21)
[2018-06-04] MEDS: levETIRAcetam In NaCl (Iso-Os) 1,000 MG in Premix Bag 1 BAG IVPB SCH ×2 (02:36→14:49)
[2018-06-04] MEDS: Labetalol HCl 100 MG/20 ML VIAL SLOW IVP PRN ×2 (04:08→08:07)
[2018-06-04 05:32] VITALS: TEMP 99.3
[2018-06-04 05:38] LABS: Anion Gap 12 mmol/L (10-20); BUN (Urea Nitrogen) 19 mg/dL (9.8-20.1); Band 8 % (5-11); Calc. Creatinine Clearance 113 mL/min (70-130); Calcium 8.5 mg/dL (7.8-10.44); Carbon Dioxide 19 mmol/L (22-29); Chloride 120 mmol/L (98-107); Eosinophils 1 % (0-10); Estimated GFR-MDRD Greater than 90; Glucose 141 mg/dL (70-105); Hemoglobin 10.3 g/dL (12.0-16.0); Lymphocytes 17 % (21-51); MDiff Complete? YES; Mean Corpuscular HGB CONC 32.7 g/dL (32.0-36.0); Mean Corpuscular Hemoglobin 25.1 pg (27.0-31.0); Mean Corpuscular Volume 76.7 fL (78.0-98.0); Mean Platelet Volume 10.6 fL (7.4-10.4); Monocytes 10 % (0-10); Neutrophil 64 % (42-75); Platelet Count 108 thou/uL (130-400); Platelet Morphology Comment Appears Decreased; Potassium 3.5 mmol/L (3.5-5.1); Red Blood Cell (RBC) Count 4.12 mill/uL (4.20-5.40); Sodium 147 mmol/L (136-145); White Blood Cell (WBC) Count 9.2 thou/uL (4.8-10.8)
[2018-06-04] MEDS: Sodium Chloride 0.9% 1,000 ML IV SCH ×2 (05:56→08:03)
[2018-06-04] MEDS: Carvedilol 25 MG TAB PER TUBE SCH ×2 (09:15→16:54)
[2018-06-04] MEDS: cloNIDine 0.1 MG TAB PO SCH (09:15)
[2018-06-04] MEDS: Lisinopril 5 MG TAB PER TUBE SCH (09:15)
[2018-06-04] MEDS: Furosemide 20 MG/2 ML VIAL SLOW IVP SCH (09:16)
[2018-06-04] MEDS: Famotidine 20 MG TAB PER TUBE SCH (09:16)
--- NOTE | 2018-06-04 09:51 | PRG ---
DATE OF SERVICE: 06/04/2018 SUBJECTIVE: Selena Obrien remains intubated in the vent, sedated without any sedation, unresponsive. Pupils about 4 mm. OBJECTIVE: VITAL SIGNS: Pulse 101, blood pressure 180/90, respirations 20, saturations are 98%. CHEST: Decreased breath sounds. No wheezing. CARDIAC: Normal S1 and S2. No gallops. ABDOMEN: No masses. LABORATORY DATA: Lytes are normal. White count unremarkable. Chest x-ray shows cardiomegaly. IMPRESSION: 1. Severe anoxic injury. 2. Congestive heart failure, end-stage. PLAN: As soon as family arrives, we will consider extubation and comfort care. Discussed with all family members. , the son was here yesterday. One-half hour of critical time. Job ID: [id number]
--- NOTE | 2018-06-04 11:58 | PDOC.EVN ---
Event Note - Event Note Event Note: Patient seen and examined case d/w Dr. Adams, he stated he will take care of the issue, patient has a terminal diagnosis and will likely be extubated this afternoon when all of family arrives. Patient will pass away very likely, Dr. Adams to take care of discharge and certificate, at this point in time will sign off case as I have not had a chance to see the patient and ICU team has been managing closely.
[2018-06-04 14:21] VITALS: BP 167/79
[2018-06-04] MEDS ORDERED: Morphine 10 MG/ML VIAL SLOW IVP PRN (14:38)
[2018-06-04] MEDS ORDERED: Lorazepam 2 MG/ML VIAL SLOW IVP PRN (14:39)
--- NOTE | 2018-06-05 13:27 | PDOC.EVN ---
Event Note - Event Note Event Note: note/DC SUMMARY #[id number]
--- NOTE | 2018-06-05 16:01 | DIS ---
DATE OF ADMISSION: 05/31/2018 DATE OF DISCHARGE: 06/04/2018 SUMMARY: DATE OF : 06/04/2018. ADMITTING DIAGNOSES: Hypertension, hyperlipidemia, depression, cardiopulmonary arrest, and diabetes mellitus type 2. DIAGNOSES AT THE TIME OF : Hypertension, hyperlipidemia, depression, cardiopulmonary arrest, and diabetes mellitus type 2. HOSPITAL COURSE: This is a 57-year-old female, who was admitted to Internal Medicine Team, also seen very closely by the Pulmonary/Critical Care Team and Cardiology and Neurology Teams. The patient was admitted to the ICU, intubated, has had significant pressor support and everything performed to see if the patient had any possible residual cardiac function that could be recovered and treated. However, the patient was found to have severe significant decline. The patient's family was contacted. Everyone was updated on the plan of care and was understood the patient will need a terminal extubation as there was no probability of recovery at this point in time. The patient was terminally extubated on the June 04, 2018 and pronounced by the nurse later on that day. The patient pronounced at 17:41 hours on 06/04/2018. Family at bedside. Job ID: [id number]
--- NOTE | 2018-06-05 21:59 | EKG ---
Test Reason : Blood Pressure : / mmHG Vent. Rate : 111 BPM Atrial Rate : 111 BPM P-R Int : 176 ms QRS Dur : 086 ms QT Int : 364 ms P-R-T Axes : 060 048 092 degrees QTc Int : 495 ms Sinus tachycardia Possible Left atrial enlargement Nonspecific T wave abnormality Abnormal ECG Confirmed by FARHANA CHATMAN DO ([id number]), greeting card editor ROB CASSIDY ([id number]) on 06/05/2018 9:58:50 PM Referred By: Confirmed By:FARHANA CHATMAN DO
--- NOTE | 2018-06-07 13:31 | EEG ---
Referring Physician: Becca CLAROS EEG # [id number] TEST TYPE: ROUTINE PORTABLE INPATIENT REPORT: AN EEG USING THE [employer]NATIONAL TEN-TWENTY SYSTEM OF ELECTRODE PLACEMENT WAS PERFORMED. The background consists of bursts of high amplitude sharp activity with intervening Theta frequencies and some suppression. This continued throughout the study. Photic stimulation was unremarkable. IMPRESSION: THIS IS AN ABNORMAL EEG FOR THE FINDINGS OF A BURST-SUPPRESSION PATTERN CONSISTENT WITH A DIFFUSE NEURONAL INJURY. Applications Packager: JANIYA Benefits Technician: [email or web address]
== END 2018-06-04 19:25 | disposition expired | DRG 208 ==
LOC: ERS 08:31 → EDBD 08:31 → CCU 10:25
PROVIDERS: ADMIT Internal Medicine Infectious Disease; ATTEND Internal Medicine Infectious Disease
PROC: 5A1945Z Respiratory Ventilation, 24-96 Consecutive Hours (ICD-10-PCS; principal; 2018-05-31)
PROC: 3E033XZ Introduction of Vasopressor into Peripheral Vein, Percutaneous Approach (ICD-10-PCS; 2018-05-31)
PROC: 4A00X4Z Measurement of Central Nervous Electrical Activity, External Approach (ICD-10-PCS; 2018-05-31)
DX: J96.01 Acute respiratory failure with hypoxia (principal); I50.23 Acute on chronic systolic (congestive) heart failure; J18.9 Pneumonia, unspecified organism; G93.1 Anoxic brain damage, not elsewhere classified; I24.8 Other forms of acute ischemic heart disease; I42.9 Cardiomyopathy, unspecified; R57.0 Cardiogenic shock; Z51.5 Encounter for palliative care; I11.0 Hypertensive heart disease with heart failure; E66.01 Morbid (severe) obesity due to excess calories; E11.9 Type 2 diabetes mellitus without complications; E78.5 Hyperlipidemia, unspecified; F32.9 Major depressive disorder, single episode, unspecified; Z68.36 Body mass index [BMI] 36.0-36.9, adult; Z91.14 Patient's other noncompliance with medication regimen; Z91.19 Patient's noncompliance with other medical treatment and regimen; Z79.899 Other long term (current) drug therapy; Z95.810 Presence of automatic (implantable) cardiac defibrillator
CPT/HCPCS: 36415; 36416; 51702; 71045; 71275; 80048; 80053; 80061; 81003; 81015; 82553; 82805; 83605; 83880; 84484; 85025; 85610; 87040; 90471; 90686; 90732; 93005; 93010; 93306; 94002; 94003; 95816; 95819; 96365; 96368; 96374; 96376; G0008; G0009; J0360; J0692; J1940; J1953; J1956; J2060; J2270; J2543; J2704; J3010; J3370; J7050; S0028